=== PATIENT | female | born 1970 | race Caucasian/White ===

== ENCOUNTER → 2017-05-23 12:28 | Outpatient (CLI) | payer OTHER, MEDICAID, SELFPAY ==
[2017-05-20 09:06] VITALS: BP 140/85; BMI 29.2
== END ==
PROVIDERS: Family Provider Student in an Organized Health Care Education/Training Program; PCP Student in an Organized Health Care Education/Training Program; Visit Provider Nurse Practitioner Acute Care
DX: R52 Pain, unspecified (principal)
CPT/HCPCS: 87804

== ENCOUNTER → 2017-07-04 08:34 | Outpatient (CLI) | payer OTHER, MEDICAID, SELFPAY | PROVIDERS: Family Provider Student in an Organized Health Care Education/Training Program; PCP Student in an Organized Health Care Education/Training Program; Visit Provider Nurse Practitioner Acute Care | DX: J18.9 Pneumonia, unspecified organism (principal) | CPT/HCPCS: 87070; 87205 ==

== ENCOUNTER → 2018-02-02 15:01 | Outpatient (CLI) | payer OTHER, SELFPAY ==
[2018-02-06 09:48] LABS: HPV APTIMA, High Risk Negative (Negative)
== END ==
PROVIDERS: Family Provider Student in an Organized Health Care Education/Training Program; PCP Student in an Organized Health Care Education/Training Program; Referring Provider Obstetrics & Gynecology; Visit Provider Obstetrics & Gynecology
DX: Z12.4 Encounter for screening for malignant neoplasm of cervix (principal)
CPT/HCPCS: 88175; G0145

== ENCOUNTER 2024-08-03 05:39 | Observation (INO) | payer OTHER, SELFPAY ==
[2024-08-03] VITALS (7 sets, daily range): BP systolic 143–162; BP diastolic 76–123; PULSE 74–109; RESP 16–18; TEMP 36.4–36.8; O2SAT 98–100; BMI 33.3; BMI 32.6
--- NOTE | 2024-08-03 05:55 | CT_ITS ---
PROCEDURE: ABDOMEN/PELVIS WITHOUT CONT 08/03/2024 REASON FOR EXAM: KIDNEY STONE TECHNIQUE: Abdomen and pelvis CT without intravenous contrast. Noncontrast technique limits evaluation of the abdominal and pelvic viscera. Coronal and Sagittal reconstruction series were provided. One or more dose reduction techniques were used (e.g., Automated exposure control, adjustment of the mA and/or kV according to patient size, use of iterative reconstruction technique). PATIENT PREPARATION: Per protocol ORAL CONTRAST TYPE: None. AMOUNT: mL COMPARISON: None available FINDINGS: Noncalcified subpleural micronodule at the lingula axial 2, nonspecific. Visualized lung bases are otherwise clear. The liver, gallbladder, adrenal glands, pancreas and spleen appear within limits. Bilateral left larger than the right multifocal intrarenal stones. 5 mm presenting axis distal left ureteral stone approximately 4 cm from the UVJ with associated moderate left hydroureteronephrosis. Based on size possibly may not spontaneously pass the UVJ. Mild asymmetric left perinephric stranding may be reactive. Abdominal aorta appears within limits on noncontrast imaging. No adenopathy. No bowel dilation or free air. Normal caliber appendix without secondary signs. Mild prominent size of the uterus without focal lesion seen on noncontrast imaging. The ovaries and bladder appear within limits. Small pelvic free fluid. Possible sacral Tarlov cysts. Bilateral symmetric partial osseous fusion of the lower SI joints. CT/Abdomen/Pelvis without Cont IMPRESSION: 5 mm presenting axis distal left ureteral stone approximately 4 cm from the UVJ with associated moderate left hydroureteronephrosis. Based on size possibly may not spontaneously pass the UV J. Mild asymmetric left perinephric stranding may be reactive. Bilateral left larger than right multifocal nephrolithiasis. Reading Location: [id number]
--- NOTE | 2024-08-03 06:01 | EX.ED.DYSGE1 ---
HPI History of Present Illness Chief Complaint: Flank Pain Narrative Narrative: Patient is a 53-year-old female past medical history of anemia, shortness of breath, hypertension, asthma, kidney stones who presented to the emergency department with a chief complaint of kidney stone. She [facility] was diagnosed with a kidney stone that was large and was told that this would need to be removed. She was referred to [place] [facility] states that she spent the entire day attempting to get a hold of them and was able to do so. She states that she has been in significant pain the entire time and the Percocet is not helping the pain therefore she came here for further evaluation management. [facility] Medical History (Updated 08/03/24 @ 07:[address] Reji Mederos DO) Hay fever Anemia SOB (shortness of breath) HTN (hypertension) Dyspnea Onychomycosis Asthma Home Medications ?Medication ?Instructions ?Recorded ?Last Taken ?Type drospirenone 3 mg-ethinyl 1 ea PO DAILY 11/21/14 Unknown History estradiol 0.03 mg tablet epinephrine 0.3 mg/0.3 mL 0.3 mg (0.3 mL) IM ONCE PRN 11/06/17 Unknown Rx injection, auto-injector (EpiPen anaphylaxis #1 ea 2-Vaibhav) albuterol sulfate 2.5 mg/3 mL 2.5 mg (3 mL) inhalation Q4H PRN 10/26/18 Unknown Rx (0.083 %) solution for nebulization PRN Asthma #180 vials oxycodone-acetaminophen 5 mg-325 1 tab PO 4X/DAY PRN 08/03/24 Unknown History mg tablet Allergy/AdvReac Type Severity Reaction Status Date / Time Penicillins Allergy Hives Verified 08/03/24 05:40 soap Allergy NEEDS Verified 08/03/24 05:40 FOLLOW-UP venom-honey bee (bee venom Allergy Anaphylaxis Verified 08/03/24 05:40 (honey bee)) Family History Daughter Asthma Father Cancer Surgical History History of knee surgery History of tubal ligation Social History adopted: No household members: family housing: house number of children: 3 current occupational status: employed 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, [employer] and EMT current occupational exposures/hazards: No history of recent travel: No Smoking Status: Never smoker Electronic Cigarette Use: not used second hand exposure: No alcohol intake: never substance use type: does not use seatbelt use: always do you feel safe at home: Yes ROS ROS ED ROS Narrative Constitutional: Denies any fevers, chills, headaches, lightness, dizziness Eyes: Denies change in vision double vision blurry vision Cardiovascular: Denies chest pain or palpitations Respiratory: Denies cough or wheezing shortness of breath Abdomen: Denies abdominal pain vomiting or diarrhea states that she is nauseous : Denies urinary symptoms Neurological: Denies numbness, weakness, tingling Musculoskeletal: Complains of flank pain as noted above Skin: Denies rashes or lesions EXAM Physical Exam Narrative Exam Narrative: General: Patient is lying in bed rest comfortably did not appear to be in acute distress Head: Atraumatic, normocephalic Eyes: PERRL bilateral, EOMI bilateral, no conjunctival injection noted Neck: Soft, supple, trachea midline Cardiovascular: Regular in rhythm no murmurs gallops rubs noted Respiratory: Clear to auscultation bilaterally Abdomen: Soft, nondistended, nontender to palpation Extremities: +5/5 strength noted in the bilateral upper and lower extremities, radial pulses +2/4 in the bilateral per extremities Neurological: Patient following commands knew that she was at [facility] the year is 2024 Skin: Warm, dry, intact no rashes or lesions noted Const Vital Signs: 08/03/24 05:42 08/03/24 05:46 Temperature 97.8 F Temperature Source Oral Pulse Rate 91 Respiratory Rate 18 Respiratory Effort Normal Non-Labored Respiratory Pattern Normal Blood Pressure 151/91 H Blood Pressure Mean 111 Pulse Ox 98 Oxygen Delivery Method Room Air MDM MDM MDM Narrative Medical decision making narrative: Patient is a 53-year-old female who presented to the emergency department with a chief complaint of kidney stone and inability to get into [facility]. On the differential diagnose includes but not limited to urolithiasis, pyelonephritis, UTI. Once workup is obtained reviewed she will be reevaluated. Patient given IV fluids morphine Zofran. Patient CBC was reviewed which showed no evidence leukocytosis white blood count normal 8.9, he was 12.4, platelet count noted to be 239. Patient's sodium is 133, potassium of 4.3, creatinine was elevated 1.74 indicating acute kidney injury, AST and ALT were 2918 respectively lipase normal at 24. Patient CT abdomen pelvis without contrast was reviewed and showed 5 mm present axis distal left ureteral stone approximately 4 cm from the UVJ with associated moderate left hydroureteronephrosis based on size possibly may not spontaneously pass. Bilateral left larger than right multifocal nephrolithiasis. Did discuss case with on-call urologist Dr. Stephenson who accept patient for admission. Patient was notified is agreeable this plan all course concerns answered. Lab Data Labs: Laboratory Results - last 24 hr 08/03/24 05:51 WBC 8.9 RBC 3.96 L Hgb 12.4 Hct 34.7 L MCV 87.6 MCH 31.3 MCHC 35.7 RDW Std Deviation 39.3 RDW Coeff of Inderjit 12.2 Plt Count 239 MPV 11.2 Immature Gran % (Auto) 0.200 Neut % (Auto) 76.1 H Lymph % (Auto) 15.1 L [place] % (Auto) 5.6 Eos % (Auto) 2.4 Baso % (Auto) 0.6 Absolute Neuts (auto) 6.7 Absolute Lymphs (auto) 1.34 Nucleated RBC % 0.3 Differential Comment SCANNED Platelet Estimate ADEQUATE RBC Morphology NORM C+C Sodium 133 Potassium 4.3 Chloride 102 Carbon Dioxide 19.2 L Anion Gap 12 BUN 11 Creatinine 1.74 H Estim Creat Clear Calc 39.71 L Est GFR (MDRD) Non-Af 34 L BUN/Creatinine Ratio 6.3 L Glucose 111 H Calcium 8.3 Total Bilirubin 0.29 AST 29 ALT 18 Alkaline Phosphatase 66 Total Protein 6.7 Albumin 3.7 Globulin 3.0 Albumin/Globulin Ratio 1.2 Lipase 24 Radiography Diagnostic Testing: Clinical Impression(s) from Imaging Studies Abdomen/Pelvis CT 08/03/24 05:55 IMPRESSION: 5 mm presenting axis distal left ureteral stone approximately 4 cm from the UVJ with associated moderate left hydroureteronephrosis. Based on size possibly may not spontaneously pass the UVJ. Mild asymmetric left perinephric stranding may be reactive. Bilateral left larger than right multifocal nephrolithiasis. Reading Location: [facility] Discharge Plan Triage Chief Complaint: Flank Pain ED Provider: Reji Mederos Dx/Rx/DC Orders Clinical Impression: Left flank pain, Urolithiasis, Acute kidney injury, Hydroureteronephrosis Prescriptions: No Action epinephrine [EpiPen 2-Vaibhav] 0.3 mg/0.3 mL auto-injector 0.3 mg IM ONCE PRN (Reason: anaphylaxis) Qty: 1 0RF albuterol sulfate 2.5 mg /3 mL (0.083 %) solution for nebulization 2.5 mg INHALATION Q4H PRN PRN (Reason: Asthma) Qty: 180 6RF drospirenone-ethinyl estradiol 1 EACH tablet 1 ea PO DAILY oxycodone-acetaminophen 5-325 mg tablet 1 tab PO 4X/DAY PRN Primary Care Provider: Jad Lucero Referrals: Jad Lucero DO [Primary Care Provider] - Print Language: Peruvian Disposition Disposition: Acute Care [facility]
[2024-08-03] MEDS: Morphine 4 MG/ML Syringe IV ×2 (06:11→12:39)
[2024-08-03] MEDS: 0.9% Normal Saline (1000mL) 1,000 ML 999 ML IV (06:11)
[2024-08-03] MEDS: Ondansetron 4 MG/2 ML Vial IV ×2 (06:11→12:39)
[2024-08-03 06:38] LABS: Absolute Lymphocyte Count 1.34 X10^3/uL (0.83-4.51); Absolute Neutrophil Count 6.7 X10^3/uL (2.0-7.7); Basophil# 0.05 X10^3/uL; Basophil% 0.6 % (0-1); Eosinophil# 0.21 X10^3/uL; Eosinophils% 2.4 % (0-5); Hematocrit 34.7 % (37-47); Hemoglobin 12.4 g/dL (12.0-15.0); Lymphocyte # 1.34 X10^3/ul (0.83-4.51); Lymphocyte % 15.1 % (19-41); Mean Corp Hgb Conc 35.7 g/dL (32-36); Mean Corpuscular Hgb 31.3 pg (27.0-32.0); Mean Corpuscular Volume 87.6 fL (81-99); Mean Platelet Vol. 11.2 fl (6.2-12.0); Monocyte% 5.6 % (0-10); NRBC Flagged by Analyzer 0.3 % (0-5); Neutrophil # 6.73 X10^3/uL (2.7-7.7); Neutrophil % 76.1 % (47-70); POSITIVE COUNT YES; Platelet Count 239 K/mm3 (150-450); RBC Distribution Width CV 12.2 % (11.6-14.6); RBC Distribution Width SD 39.3 fl (35.1-43.9); Red Blood Count 3.96 M/mm3 (4.2-5.4); White Blood Count 8.9 K/mm3 (4.4-11.0)
[2024-08-03 06:39] LABS: Differential Indicated SCAN CRITERIA MET
[2024-08-03 07:00] LABS: Lipase 24 U/L (13-75)
[2024-08-03 07:02] LABS: ALB/GLOB Ratio 1.2 RATIO (0.9-2.4); AST(SGOT) 29 U/L (<=31); Alanine Aminotransfer ALT/SGPT 18 U/L (<=34); Albumin, Serum 3.7 g/dL (3.5-5.0); Alkaline Phosphatase 66 U/L (35-104); Anion Gap 12 (5-15); BUN 11 mg/dL (4-19); BUN/Creat Ratio 6.3 RATIO (10-20); Calcium,Total 8.3 mg/dL (7.6-11.0); Carbon Dioxide 19.2 mmol/L (21.0-32.0); Chloride 102 mmol/L (98-108); Creatinine, Serum 1.74 mg/dL (0.70-1.20); EST Glomerular Filtration Rate 34 (>60); Estimated Creatinine Clearance 39.71 ml/min (50-250); Glucose 111 mg/dL (70-99); Potassium 4.3 mmol/L (3.3-5.1); Protein, Total 6.7 g/dL (5.9-8.4); Sodium Level 133 mmol/L (133-145); Total Bilirubin 0.29 mg/dL (0.00-1.30)
[2024-08-03 07:11] LABS: Differential Comment SCANNED; Platelet Estimate ADEQUATE (ADEQ); Red Cell Morphology NORM C+C NORMAL (NORM C&C)
[2024-08-03 07:52] LABS: Mucous, Urine 0 SEEN /hpf (<or=2+)
[2024-08-03 08:55] LABS: Color, Urine Yellow (Yellow); Glucose, Dipstick Normal (Normal); Ketone-Dipstick Negative (Negative); Leukocyte Esterase-Dipstick 25 /ul (Negative); Nitrite-Dipstick Negative (Negative); Occult Blood-Urine 10 /ul (Negative); Protein-Dipstick 30 mg/dl (Negative); Specific Gravity, Urine 1.015 (1.002-1.030); Urine Bilirubin Dipstick Negative (Negative); Urine Clarity Sl. Cloudy (Clear); Urine Urobilinogen Normal (Normal)
[2024-08-03 09:20] LABS: Squamous Epithelial Cells - UA 0-5 SEEN /hpf (5-10)
[2024-08-03 09:21] LABS: Bacteria 2+ /hpf (None Seen); Red Blood Cells-Urine 0-5 SEEN /hpf (0-5); White Blood Cells 0-5 SEEN /hpf (0-5)
--- NOTE | 2024-08-03 09:40 | HP.PCM_ITS ---
HPI - General General Date of Admission: 08/03/24 Chief Complaint: Left ureteral calculus HPI Narrative ASHANTI ALLISON, is a 53 F who presents To the emergency room for the second time, perception presented to [facility] in [place] with severe pain in the left side she is a stone in the distal left ureter 5 mm in size with intractable pain the emergency room called me and asked me to admit the patient for pain control plan admit of her being control to your surgery tomorrow for shockwave lithotripsy to keep treat the kidney stone with shockwave. PENDING SALE TO [facility] Medical History Hay fever Anemia SOB (shortness of breath) HTN (hypertension) Dyspnea Onychomycosis Asthma Home Medications ?Medication ?Instructions ?Recorded ?Last Taken ?Type drospirenone 3 mg-ethinyl 1 ea PO DAILY 11/21/14 Unkno wn History estradiol 0.03 mg tablet epinephrine 0.3 mg/0.3 mL 0.3 mg (0.3 mL) IM ONCE PRN 11/06/17 Unknown Rx injection, auto-injector (EpiPen anaphylaxis #1 ea 2-Vaibhav) albuterol sulfate 2.5 mg/3 mL 2.5 mg (3 mL) inhalation Q4H PRN 10/26/18 Unknown Rx (0.083 %) solution for nebulization PRN Asthma #180 vi als oxycodone-acetaminophen 5 mg-325 1 tab PO 4X/DAY PRN 0 08/03/24 Unknown History mg tablet Allergy/AdvReac Type Severity Reaction Status Date / Time Penicillins Allergy Hives Verified 08/03/24 05:40 soap Allergy NEEDS Verified 08/03/24 05:40 FOLLOW-UP venom-honey bee (bee venom Allergy Anaphylaxis Verified 08/03/24 05:40 (honey bee)) Family History Daughter Asthma Father Cancer Surgical History History of knee surgery History of tubal ligation Social History adopted: No household members: family housing: house number of children: 3 current occupational status: employed 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, [employer] and EMT current occupational exposures/hazards: No history of recent travel: No Smoking Status: Never smoker Electronic Cigarette Use: not used second hand exposure: No alcohol intake: never substance use type: does not use seatbelt use: always do you feel safe at home: Yes Vital Signs Vital Signs Vital Signs: 08/03/24 05:42 08/03/24 05:46 08/03/24 07:50 Temperature 97.8 F Temperature Source Oral Pulse Rate 91 74 Respiratory Rate 18 16 Respiratory Effort Normal Non-Labored Respiratory Pattern Normal Blood Pressure 151/91 H 145/83 H Blood Pressure Mean 111 103 Pulse Ox 98 98 Oxygen Delivery Method Room Air Room Air Weight Weight: 88.1 kg Body Mass Index (BMI) 33.3 Results Medical Records Data Attestation: I reviewed the patient's medical records Lab / Micro Data 08/03/24 05:51 08/03/24 05:51 Labs: Laboratory Results - last 24 hr 08/03/24 05:51: WBC 8.9, RBC 3.96 L, Hgb 12.4, Hct 34.7 L, MCV 87.6, MCH 31.3, MCHC 35.7, RDW Std Deviation 39.3, RDW Coeff of Inderjit 12.2, Plt Count 239, MPV 11.2, Immature Gran % (Auto) 0.200, Neut % (Auto) 76.1 H, Lymph % (Auto) 15.1 L, [place] % (Auto) 5.6, Eos % (Auto) 2.4, Baso % (Auto) 0.6, Absolute Neuts (auto) 6.7, Absolute Lymphs (auto) 1.34, Nucleated RBC % 0.3, Differential Comment SCANNED, Platelet Estimate ADEQUATE, RBC Morphology NORM C+C, Sodium 133, Potassium 4.3, Chloride 102, Carbon Dioxide 19.2 L, Anion Gap 12, BUN 11, C reatinine 1.74 H, Estim Creat Clear Calc 39.71 L, Est GFR (MDRD) Non-Af 34 L, B UN/Creatinine Ratio 6.3 L, Glucose 111 H, Calcium 8.3, Total Bilirubin 0.29, AST 29, ALT 18, Alkaline Phosphatase 66, Total Protein 6.7, Albumin 3.7, Globulin 3.0, Albumin/Globulin Ratio 1.2, Lipase 24 08/03/24 07:30: Urine Color Yellow, Urine Clarity Sl. Cloudy, Urine pH 6.0, Ur Specific [place] 1.015, Urine Protein 30 H, Urine Glucose (UA) Normal, Urine Ketones Negative, Urine Occult Blood 10 H, Urine Nitrite Negative, Urine Bilirubin Negative, Urine Urobilinogen Normal, Ur Leukocyte Esterase 25 H, Urine RBC 0-5 SEEN, Urine WBC 0-5 SEEN, Ur Squamous Epith Cells 0-5 SEEN, Urine Bacteria 2+, Urine Mucus 0 SEEN Imaging Radiology Impression Abdomen/Pelvis CT 08/03/24 05:55 IMPRESSION: 5 mm presenting axis distal left ureteral stone approximately 4 cm from the UVJ with associated moderate left hydroureteronephrosis. Based on size possibly may not spontaneously pass the UVJ. Mild asymmetric left perinephric stranding may be reactive. Bilateral left larger than right multifocal nephrolithiasis. Reading Location: [id number] Assessment & Plan Assessment/Plan (1) Hydroureteronephrosis: (2) Acute kidney injury: PLAN: Admit for kidney stone tree patient with shockwave lithotripsy tomorrow npo night (3) Urolithiasis:
--- NOTE | 2024-08-03 11:36 | CASEMGMT ---
Care Management Face to Face with patient for initial transition planning/care coordination assessment in the ED. This hand sign writer introduced self and role at [facility]. Patient alert and oriented. Patient willing to participate in assessment and is able to answer all questions appropriately. Care providers, pharmacy, and demographics verified. Admitting Diagnosis: Hydroureteronephrosis, Acute kidney injury, Urolithiasis Other diagnosis history: Hay fever, Anemia, HTN, Dyspnea, Onychomycosis, Asthma PCP: Nic Specialists: none Preferred Pharmacy: [facility] Insurance: [place] Prescription Benefit: yes Living Will/HPOA: none LNOK: 3 children and mother Living Arrangements: lives with mother in a 1.5 story home with 3 steps to enter; has basement apartment, but bathroom is upstairs; independent with all ADLs/IADLs at baseline Transportation: patient drives DME: inhaler and nebulizer, but no nebulizer solution (patient states not using the nebulizer in years and not knowing if it even works). Ramp. HHC: none SNF/Rehab: none Community Resources: none Patient goals: Patient wishes to discharge home, denies need for home health care at this time. Patient denies any further needs or concerns at this time. Disposition Plan: admission to acute; RN CM/SW to follow for discharge planning needs that may arise. Idalia Quinonez, SKIP TRACER, DIETETIC INTERN
[2024-08-03] MEDS: 0.9% Normal Saline (1000mL) 1,000 ML 125 ML IV ×2 (13:23→22:29)
[2024-08-03] MEDS: 0.9% Saline Lock 10 ML Syringe IV (13:23)
[2024-08-03] MEDS: Enoxaparin 40 MG/0.4 ML Syringe SC (13:45)
[2024-08-03] MEDS: Docusate Sodium 100 MG Capsule 200 MG PO ×2 (13:45→22:29)
[2024-08-03] MEDS: oxyCODONE 5 MG Tablet PO ×2 (13:46→19:49)
[2024-08-03] MEDS: Ciprofloxacin 400 MG/200 ML BAG 200 MG IV ×2 (13:47→22:28)
[2024-08-03] MEDS: Morphine 2 MG/ML Syringe IV (15:38)
[2024-08-03] MEDS: proCHLORPERazine 10 MG/2 ML Vial 5 MG IV (17:30)
[2024-08-04] VITALS (11 sets, daily range): BP systolic 137–169; BP diastolic 70–94; PULSE 82–108; RESP 16–18; TEMP 36.1–37.1; O2SAT 95–100; BMI 32.5
[2024-08-04] MEDS: 0.9% Saline Lock 10 ML Syringe IV ×4 (01:40→11:05)
[2024-08-04] MEDS: Morphine 2 MG/ML Syringe IV ×2 (01:40→05:08)
[2024-08-04] MEDS: Ondansetron 4 MG/2 ML Vial IV ×2 (02:56→11:05)
[2024-08-04] MEDS: proCHLORPERazine 10 MG/2 ML Vial 5 MG IV (05:08)
[2024-08-04 05:10] LABS: Absolute Lymphocyte Count 0.87 X10^3/uL (0.83-4.51); Absolute Neutrophil Count 7.5 X10^3/uL (2.0-7.7); Basophil# 0.05 X10^3/uL; Basophil% 0.6 % (0-1); Eosinophil# 0.11 X10^3/uL; Eosinophils% 1.2 % (0-5); Hematocrit 31.3 % (37-47); Hemoglobin 11.1 g/dL (12.0-15.0); Lymphocyte # 0.87 X10^3/ul (0.83-4.51); Lymphocyte % 9.7 % (19-41); Mean Corp Hgb Conc 35.5 g/dL (32-36); Mean Corpuscular Hgb 30.9 pg (27.0-32.0); Mean Corpuscular Volume 87.2 fL (81-99); Mean Platelet Vol. 10.3 fl (6.2-12.0); Monocyte# 0.43 X10^3/uL; Monocyte% 4.8 % (0-10); NRBC Flagged by Analyzer 0 % (0-5); Neutrophil # 7.51 X10^3/uL (2.7-7.7); Neutrophil % 83.4 % (47-70); Platelet Count 223 K/mm3 (150-450); RBC Distribution Width CV 12.1 % (11.6-14.6); RBC Distribution Width SD 38.9 fl (35.1-43.9); Red Blood Count 3.59 M/mm3 (4.2-5.4)
[2024-08-04 05:43] LABS: Anion Gap 11 (5-15); BUN 9 mg/dL (4-19); BUN/Creat Ratio 5.6 RATIO (10-20); Calcium,Total 7.7 mg/dL (7.6-11.0); Carbon Dioxide 18.4 mmol/L (21.0-32.0); Chloride 103 mmol/L (98-108); Creatinine, Serum 1.53 mg/dL (0.70-1.20); EST Glomerular Filtration Rate 40 (>60); Estimated Creatinine Clearance 44.68 ml/min (50-250); Glucose 126 mg/dL (70-99); Potassium 4.1 mmol/L (3.3-5.1); Sodium Level 133 mmol/L (133-145)
[2024-08-04] MEDS: 0.9% Normal Saline (1000mL) 1,000 ML 125 ML IV (06:49)
[2024-08-04] MEDS: Ketorolac 15 MG/ML Vial IV (11:05)
--- NOTE | 2024-08-04 13:15 | PCM.PRE.AN2 ---
ASA Classification* ASA Classification ASA Classification: 2 Assessment & Plan Anesthesia* Anesthesia Assessment Anesthesia Assessment: Discussed sedation and/or anesthesia options, risks, benefits, and alternatives with patient/parents/legal guardian/POA. Questions invited. The patient/parents/legal guardian/POA seems to understand and agrees to proceed with anesthesia plan. Reviewed the physical assessment, medical history, allergy history and patient home medications list prior to surgery/procedure/anesthetic and documented any changes. Performed airway and anesthesia risk assessments. Anesthesia Type Anesthesia Type: General Anesthesia Focused Assessment* Temperature: 98.1 F Pulse Rate: 88 Blood Pressure: 145/81 Respiratory Rate: 16 Pulse Ox: 99 Airway Assessment Mouth opens: >3 cm Mallampati Score: II Focused Labs Anesthesia Preop lab: CBC WBC 9.0 K/mm3 (4.4-11.0) 08/04/24 03:41 08/04/24 RBC 3.59 M/mm3 (4.2-5.4) L 08/04/24 03:41 08/04/24 Hgb 11.1 g/dL (12.0-15.0) L 08/04/24 03:41 08/04/24 Hct 31.3 % (37-47) L 08/04/24 03:41 08/04/24 Plt Count 223 K/mm3 (150-450) 08/04/24 03:41 08/04/24 CHEMISTRY Potassium 4.1 mmol/L (3.3-5.1) 08/04/24 03:41 08/04/24 Sodium 133 mmol/L (133-145) 08/04/24 03:41 08/04/24 BUN 9 mg/dL (4-19) 08/04/24 03:41 08/04/24 Creatinine 1.53 mg/dL (0.70-1.20) H 08/04/24 03:41 08/04/24 Glucose 126 mg/dL (70-99) H 08/04/24 03:41 08/04/24 POC Glucose 212 mg/dL (70-110) H 06/10/14 10:40 06/10/14 COAG Pre-Assessment Diagnosis/Proposed Procedure Planned Operative Procedure(s): ESWL. stent insertion Anesthesia History Anesthesia History - welfare specialist: Anesthesia History - welfare specialist Hx Hospitalization Any Problems With Anesthesia No 08/03/24 19:39 Cholinesterase deficiency No 08/03/24 19:39 You/Your Family Experience No 08/03/24 19:39 fever (hyperthermia) with Relationship Recent Exposure to Contagious No 08/03/24 19:39 Disease Does patient have nerve No 08/03/24 19:39 stimulator Patient instructed to have No 08/03/24 19:39 device shut off --Does patient have Pacemaker No 08/04/24 11:18 or ICD? When Was Last Pacemaker Check QUESTION #4 FULL TEXT: You/Your Family Experience fever (hyperthermia) with Anesthesia Last Oral Intake Last Oral intake: Last Oral Intake NPO since 00:00 08/04/24 11:18 Meds taken in AM with sips of No 08/04/24 11:18 water? Meds patient instructed to take am of surgery PONV PONV - welfare specialist: PONV - welfare specialist Female HX of Motion Sickness HX of N/V After Surgery Non-Smoker Duration of Surgery greater than 60 minutes Number of Risk Factors PONV Score Height & Weight Height & Weight: Anesthesia: Height & Weight Height 5 ft 4 in 08/03/24 12:58 Weight: 86.273 kg 08/04/24 11:18 Body Mass Index (BMI) 32.6 08/03/24 12:58 Respiratory Assessment Respiratory Assessment - welfare specialist: Respiratory Tract Infection Hx - welfare specialist Hx Respiratory Tract Infection No 08/03/24 19:39 STOP Sleep Apnea STOP Sleep Apnea - welfare specialist: STOP Sleep Apnea - welfare specialist Hx Hypertension No 08/03/24 12:58 Hx Sleep Apnea No 08/03/24 12:58 CPAP BIPAP Do you snore loudly (louder No 08/03/24 12:58 than talking or can be heard Do you often feel tired/ No 08/03/24 12:58 fatigued/ sleepy during daytime? Has anyone observed you stop No 08/03/24 12:58 breathing during sleep? STOP Results Negative 08/03/24 12:58 QUESTION #5 FULL TEXT : Do you snore loudly (louder than talking or can be heard through closed doors)? Tobacco Use History Tobacco Use History - welfare specialist: Tobacco Use History - welfare specialist Tobacco Use Smoking Status Never smoker 08/03/24 12:58 Hx Tobacco Use No 08/03/24 12:58 Years Smoking Packs Smoked per Day Smoking Cessation Date was within the last 15 years Hx Smoking Cessation Date Hx Smoking Cessation Counseling Hematologic Medial History Hematologic Hx - welfare specialist: Hematologic Medical Hx - medical radiation dosimetrist Hx of Blood Transfusion No 08/03/24 12:58 Hx of Transfusion in last 3 No 08/03/24 12:58 Months Date of Last Transfusion (if within last 3 months) Ever experience any problems No 08/03/24 12:58 with transfusion(s)? Specify any problems Hx of Preganancy in last 3 N/A 08/03/24 12:58 Months Nurse Filling Out Transfusion ACOEY 08/03/24 12:58 & Questions: Date: 08/03/24 08/03/24 12:58 Time: 13:26 08/03/24 12:58 Patient unable to answer at this time (ie. confused, unrespo /Reproduction History /Reproductive History - welfare specialist: /Reproductive Hx- welfare specialist Hx Now No 08/03/24 19:39 Gestational Age (in weeks): EDC: Hx Hx Para Hx Section SAB No 08/03/24 19:39 Active Medications Active Medications: Current Medications Generic Name Dose Route Start Last Admin Trade Name Freq PRN Reason Stop Dose Admin Acetaminophen 650 mg 08/03/24 09:42 Acetaminophen 325 Mg Tablet PO Q6H PRN PRN Pain Score 1-10 Albuterol Sulfate 2.5 mg 08/03/24 09:45 Albuterol 2.5 Mg/3 Ml Vial.Neb. INHALATION Q4H PRN PRN Asthma Clarify Med Order 0 each 08/03/24 20:00 08/04/24 07:19 Clarify Order NOTE Not Given CLARIFY SAMARA Docusate Sodium 200 mg 08/03/24 10:00 08/04/24 09:41 Docusate Sodium 100 Mg Capsule PO Not Given BID SAMARA Ketorolac Tromethamine 15 mg 08/03/24 09:42 08/04/24 11:05 Ketorolac 15 Mg/Ml Vial IV 08/05/24 09:43 15 mg Q6H PRN PRN Administration P Morphine Sulfate 2 mg 08/03/24 09:42 08/04/24 05:08 Morphine 2 Mg/Ml Syringe IV 2 mg Q2H PRN Administration Pain Score 6-10 Non-Formulary Medication 1 each 08/03/24 10:00 Drospirenone-Ethinyl Estradiol PO DAILY SAMARA Ondansetron HCl 4 mg 08/03/24 09:42 08/04/24 11:05 Ondansetron 4 Mg/2 Ml Vial IV 4 mg Q8H PRN Administration NAUSEA/VOMITING Oxycodone HCl 5 - 10 mg 08/03/24 09:42 08/03/24 19:49 Oxycodone 5 Mg Tablet PO 10 mg Q6H PRN PRN Administration Pain Score 4-10 Prochlorperazine Edisylate 5 mg 08/03/24 17:22 08/04/24 05:08 Prochlorperazine 10 Mg/2 Ml Vial IV 5 mg Q4H PRN PRN Administration NAUSEA/VOMITING Sodium Chloride 10 - 40 ml 08/03/24 13:09 08/04/24 11:05 0.9% Saline Lock 10 Ml Syringe IV 10 ml UD PRN Administration SALINE FLUSH PFSH Medical History Hay fever Anemia SOB (shortness of breath) HTN (hypertension) Dyspnea Onychomycosis Asthma Home Medications ?Medication ?Instructions ?Recorded ?Last Taken ?Type drospirenone 3 mg-ethinyl 1 ea PO DAILY 11/21/14 Unknown History estradiol 0.03 mg tablet epinephrine 0.3 mg/0.3 mL 0.3 mg (0.3 mL) IM ONCE PRN 11/06/17 Unknown Rx injection, auto-injector (EpiPen anaphylaxis #1 ea 2-Vaibhav) albuterol sulfate 2.5 mg/3 mL 2.5 mg (3 mL) inhalation Q4H PRN 10/26/18 Unknown Rx (0.083 %) solution for nebulization PRN Asthma #180 vials oxycodone-acetaminophen 5 mg-325 1 tab PO 4X/DAY PRN 08/03/24 Unknown History mg tablet Allergy/AdvReac Type Severity Reaction Status Date / Time Penicillins Allergy Hives Verified 08/03/24 05:40 soap Allergy NEEDS Verified 08/03/24 05:40 FOLLOW-UP venom-honey bee (bee venom Allergy Anaphylaxis Verified 08/03/24 05:40 (honey bee)) Family History Daughter Asthma Father Cancer Surgical History History of knee surgery History of tubal ligation Social History adopted: No household members: family housing: house number of children: 3 current occupational status: employed 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
[2024-08-04] MEDS: 0.9% Normal Saline (1000mL) 1,000 ML 15 ML IV (15:15)
--- NOTE | 2024-08-04 15:42 | DCINST_ITS ---
Discharge Instructions Diet Discharge Diet: No restrictions DC O2, CPAP, BIPAP needs Home O2 Discharge instructions: No Dressing / Incision Discharge Activity: Return to Normal Activity and May Not Drive (while taking narcotic pain medications.) Dressing / Incision Call your doctor if you observe: Fever of 101 or Higher Follow Up Care Please Follow Up With: Mitchel Stephenson MD When: Call [phone] for an appointment, call to make appt to remove stent Test Results: Test results from this visit will be discussed in further detail at your follow- up appointment, if applicable. Discharge Plan Admission Admit Date/Time: 08/03/24 09:41 Primary Reason for Your Visit: kidney stone Attending Provider: Mitchel Stephenson Primary Care Provider: Jad Lucero Discharge Orders/Prescriptions Prescriptions: Continued epinephrine [EpiPen 2-Vaibhav] 0.3 mg/0.3 mL auto-injector 0.3 mg IM ONCE PRN (Reason: anaphylaxis) Qty: 1 0RF albuterol sulfate 2.5 mg /3 mL (0.083 %) solution for nebulization 2.5 mg INHALATION Q4H PRN PRN (Reason: Asthma) Qty: 180 6RF drospirenone-ethinyl estradiol 1 EACH tablet 1 ea PO DAILY oxycodone-acetaminophen 5-325 mg tablet 1 tab PO 4X/DAY PRN Referrals / Follow Up: Jad Lucero DO [Primary Care Provider] - Mitchel Stephenson MD [Med Staff - Active Staff] - Disposition Disposition (needs filled in before D/C Order can be placed): Home, Self Care
--- NOTE | 2024-08-04 16:03 | PCM.OPRPT ---
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 In the preoperative setting I spoke with the patient regarding the treatment of the stone how the treatment would be conducted and the expectations after surgery. The patient understands there is a risk of bleeding and infection. Also discussed the very rare risk of hematoma or damage to the kidney. We also discussed the risk that the shockwave machine will fail to break the stone adequately and that the patient may need other surgical procedures. I also discussed the possibility that the patient may need a stent after the procedure. After reviewing the procedure with the patient, the patient is signed the consent form all the patient's questions were addressed and was taken back to the operating room for treatment of a kidney stone. Patient was taken back to the operating room, the patient was identified by the nursing staff, I identified the side of the treatment and the patient side of treatment had been marked by my initials. The patient underwent general anesthetic and was placed supine on the lithotripter table. I then used fluoroscopy to identify the stone on the left distal ureteral. The urethra and genitals were prepped and draped in usual sterile fashion. Using a 21 [place] rigid cystourethroscope the entire length of the urethra was normal then went into the bladder. Identified the trigone the left and right ureteral orifice. I then cannulated the left ureteral orifice and advanced a wire up into the kidney. I then backloaded a 5 [place] open ended catheter over the wire and injected contrast to delineate the anatomy. After the retrograde was performed I then used fluoroscopic images and guidance to advanced a wire up into the kidney and over the 0.038 glidewire I advanced a 6 [place] by 26 cm double pigtail stent. I then pulled the 0.038 Glidewire off and the stent coiled in the kidney bladder good position. The bladder was then drained. We confirmed the position of the stent by fluoroscopy. I then positioned the patient under the lithotripter and I used triangulation technique to identify the location of the stone and then I made sure that the stone was engaged in the F2 focal point of F2 Donier lithoprior machine. Once the patient was positioned appropriately and the stone was identified and placed in the F2 focal point of the lithotripter machine I then proceeded with shockwave lithotripsy. In the beginning the shockwave was delivered at a rate of 90 shocks per minute, anesthesia monitored the EKG for any ectopy. The power was slowly increased to 5 kV and subsequently at the 7 kV. I then proceeded with the treatment with shock wave therapy and around during the treatment to make sure the stone stayed in the F2 focal point during the entire treatment and after 4000 shockwaves were delivered to the stone under fluoroscopic guidance the treatment was completed. The patient was given instructions to call the office to make an a follow-up appointment with an x-ray to evaluate the success of the treatment, patient understands that its possible the stones may need another procedure. At this point the patient's anesthetic was reversed patient was extubated and taken back to the PACU in stable condition. Surgical Findings: stone in distal left ureter treated with shockwave lithotripsy Complications Complications: No Admit VTE Documentation VTE Present on Admission: No VTE Mechan Device Prophylaxis: SCD's VTE Pharm Prophylaxis ordered?: No
--- NOTE | 2024-08-04 16:08 | NURSING ---
All documentation by certified nursing assistant Kayla Banegas reviewed by certified nursing assistant Ara YEEN, RN.
--- NOTE | 2024-08-04 17:12 | PCM.POST.ANE ---
Anesthesia: Postop Eval I Current Vital Signs Temperature: 96.9 F Pulse Rate: 108 Blood Pressure: 158/92 Respiratory Rate: 16 Pulse Ox: 96 Oxygen Delivery Method: Room Air Assessment Airway patent: Yes Spontaneous unlabored respirations: Yes Mental status: Awake nausea: No Vomiting: No Anesthesia Complication: No Fluid Hydration Crystalloid volume administer (ml): 500 Total IV fluid infused: 500 Progress Note Anesthesia document: Postop Eval 1 completed: Yes
--- NOTE | 2024-08-04 17:15 | PCM.POSTANE2 ---
Anesthesia Postop Eval I Sum Postop Eval Completion status Anesthesia document: Postop Eval 1 completed: Yes Anesthesia Postop Eval I Summary Anesthesia Postop Eval I Summary: Anesthesia Postop Eval I: Assessment Summary Airway patent Yes 08/04/24 17:13 Spontaneous unlabored Yes 08/04/24 17:13 respirations Mental status Awake 08/04/24 17:13 nausea No 08/04/24 17:13 Vomiting No 08/04/24 17:13 Anesthesia Postop Eval I: Fluid Summary Crystalloid volume administer 500 08/04/24 17:13 (ml) Colloids volume administered ( ml) Blood Product volume administered (ml) Total IV fluid infused 500 08/04/24 17:13 Anesthesia Postop Eval I: Summary Notes Anesthesia Complication No 08/04/24 17:13 Anesthesia Complication Comment: Post-operative progress note Anesthesia: Postop Eval II Evaluation Mental status: Awake Pain Level: 0 nausea: No Vomiting: No
== END 2024-08-04 19:08 | disposition home or self-care (01) ==
LOC: ED 11:43 → MS3 12:35
PROVIDERS: Admitting Provider Urology; Emergency Provider Emergency Medicine; PCP Student in an Organized Health Care Education/Training Program; Visit Provider Urology
PROC: (CPT 50590; principal; 2024-08-04 15:55)
DX: N13.2 Hydronephrosis with renal and ureteral calculous obstruction (principal); N17.9 Acute kidney failure, unspecified; I10 Essential (primary) hypertension; J45.909 Unspecified asthma, uncomplicated; Z79.899 Other long term (current) drug therapy
CPT/HCPCS: 52332; 00873; 36415; 74176; 80048; 80053; 81001; 83690; 85025; 87086; 87088; 96361; 96365; 96366; 96372; 96375; 96376; 99221; 99284; A4216; C1769; C2617; G0378; J0744; J2405